=== PATIENT | male | born 1935 | race Caucasian/White ===

== ENCOUNTER 2018-02-25 09:00 | Emergency (ER) | payer OTHER ==
[~2018-02-25] VITALS: Ht 172.7 cm; Wt 117.9 kg
[~2018-02-25 09:00] MED LIST: ALFUZOSIN HCL10 MG PO; ALLEGRA ALLERG180 MG PO; ALLEGRA180 MG PO; ASPIRIN EC81 M1 PO; ASPIRIN325 PO; BISACODYL SUPP10 MG RECTAL; BYSTOLIC 5 MG5 M1 PO; CIPRO500 MG PO; CLONAZEPAM2 MG PO; CO Q-10100 MG PO; COLACE100 MG PO; COUMADIN 2.5MG2.5 M1 PO; COUMADIN 5 MG TA5 M1 PO; COZAAR100 MG PO; CRESTOR20 MG PO; DIAZEPAM 2MG TAB2 MG PO; DIGOXIN250 MCG PO; FISH OIL 1,2001 EAC3 PO; FLEXERIL PO; FLOMAX0.4 MG PO; FLOXIN OTI0.3 %/5 M1 OPHTHALMIC; HYDROCHLOROTH12.5 MG PO; LATANOPROST 0.2.5 ML OP; LEVAQUIN 500 M500 M7 PO; LIPITOR10 MG PO; LOPRESSOR100 M1 PO; LOPRESSOR50 PO; LORATIDINE 10 M10 M1 PO; LOW DOSE ASPIRI81 M1 PO; MACROBID 100 M100 M1 PO; METOPROLOL SUCC25 M1 PO; NORCO 5-325 TA1 EACH PO; NORVASC10 MG PO; OMEPRAZOLE20 M2 PO; OXYBUTYNIN 5 MG5 M2 PO; PANTOPRAZOLE SO40 M1 PO; PRED FORTE 1% EY5 M1 OPHTHALMIC; PRINIVIL20 MG PO; PROMETHAZINE-C120 ML PO; SENNA LAXATIVE1 EACH PO; TOLTERODINE TART4 MG PO; TOPROL XL50 MG PO; TRILIPIX135 MG PO; UROXATRAL10 MG PO; VERAPAMIL HCL360 MG PO; VITAMIN D31000 UNI2 PO; XARELTO20 MG PO
[2018-02-25 09:30] LABS: URINE BILIRUBIN NEGATIVE (Negative); URINE BLOOD NEGATIVE (Negative); URINE CLARITY CLEAR; URINE COLOR YELLOW; URINE GLUCOSE-RANDOM* NEGATIVE (Negative); URINE KETONES NEGATIVE (Negative); URINE PROTEIN (DIPSTICK) NEGATIVE (Negative)
[2018-02-25 09:31] LABS: URINE LEUKOCYTES-REFLEX NEGATIVE (Negative); URINE NITRITE-REFLEX NEGATIVE (Negative); URINE UROBILINOGEN 0.2 E.U./dl (0.2-1.0)
[2018-02-25 10:03] LABS: ABSOLUTE NEUTROPHILS 6.8 thou/uL (1.4-8.2); BASOPHILS 0.9 % (0.0-2.0); EOSINOPHILS 2.2 % (0.0-3.0); HEMATOCRIT 47.6 % (42.0-52.0); LYMPHOCYTES 19.6 % (24.0-44.0); MCH 31.1 pg (26.0-34.0); MCHC 33.7 g/dL (28.0-37.0); MCV 92.4 fL (80.0-100.0); MONOCYTES 6.8 % (1.0-8.0); PLATELET COUNT 182 thou/uL (150-400); POLYS 70.5 % (36.0-66.0); RBC 5.15 mil/uL (4.50-6.00); RDW 14.6 % (10.5-14.5); WBC 9.7 thou/uL (4.0-11.0)
[2018-02-25 10:16] LABS: CALCIUM 9.8 mg/dL (8.5-10.1); POTASSIUM 4.9 mmol/L (3.5-5.1)
[2018-02-25 10:21] LABS: ALBUMIN 3.5 g/dL (3.4-5.0); TOTAL BILIRUBIN 0.9 mg/dL (<0.1-1.0); TOTAL PROTEIN 7.1 g/dL (6.4-8.2)
[2018-02-25] MEDS ORDERED: NORCO 5-325 TA1 EACH PO (12:19)
[2018-02-25 12:51] VITALS: BP 150/69
== END 2018-02-25 12:56 | disposition home or self-care (01) ==
LOC: ER 09:00
PROVIDERS: Emergency Medicine
DX: M54.6 Pain in thoracic spine (principal); F17.210 Nicotine dependence, cigarettes, uncomplicated; K21.9 Gastro-esophageal reflux disease without esophagitis; I10 Essential (primary) hypertension; E78.5 Hyperlipidemia, unspecified; I48.91 Unspecified atrial fibrillation; G47.30 Sleep apnea, unspecified; M19.90 Unspecified osteoarthritis, unspecified site; G89.29 Other chronic pain; M54.9 Dorsalgia, unspecified; G20 Parkinson's disease; Z86.73 Personal history of transient ischemic attack (TIA), and cerebral infarction without residual deficits; Z88.2 Allergy status to sulfonamides; Z95.0 Presence of cardiac pacemaker

== ENCOUNTER 2018-05-04 09:21 | Inpatient (IN) | payer OTHER ==
[~2018-05-04] VITALS: Ht 172.7 cm; Wt 117.9 kg
--- NOTE | ~2018-05-04 | HC ---
[facility] [place] [address] CONSULTATION Name: SARITHA MACKENZIE Room #: 431- ADM IN M.R.#: [id number] Admission: 05/04/18 ������������������ Attend Phys: Lul Jean MD Discharge: ������������������ Date of : 36 Report #: [id number] THIS REPORT FOR: //name// CC: Lul Jean DATE OF SERVICE: 05/05/2018 HISTORY OF PRESENT ILLNESS: The patient is an 83-year-old white male who is known to me from a prior right pontine infarct back in 2016. He was noted to have left hemiparesis, was fitted with a left AFO, has residual left upper and left lower extremity weakness. He was ambulatory at that point, contact guard with the left AFO with a front-wheeled walker and had walker splint. Since that time, he has moved into an independent living apartment with intermittent assistance. He has used his right lower extremity as his main weightbearing lower extremity along with his left-sided weakness to transfer and utilize a walker short distances. Unfortunately, he has had the onset of intractable right leg pain, which severely affects his function. He is unable to undergo an MRI secondary to a prior permanent pacemaker. CT scan showed some degenerative arthritis with lumbar spinal stenosis and the plan is for him to undergo a myelogram. He is currently on IV Solu-Medrol. He is being monitored for some hematuria since the straight catheterization as well. We are seeing him in rehabilitation medicine consultation. PAST MEDICAL HISTORY: Prior right pontine CVA in 2016. He has a history of GERD, hypertension, hyperlipidemia, hiatal hernia, sinusitis, atrial fibrillation, sleep apnea. on CPAP; Parkinson's disease, BPH, chronic back pain, multiple TIAs, frequent falls. He has the above noted CVA. MEDICATIONS: Please see the full medication listing. This includes vitamins, herbals, and supplements per report. ALLERGIES: SULFA. HABITS: Cigars 1 a week. Some alcohol usage. No history of recreational drug abuse. SOCIAL HISTORY: His a couple of years ago and he moved into the independent living apartment. He does have additional paid assistance however a.m. and p.m. for approximately 30 minutes 4 times a day. They help with dressing activities and basic meals. He has a bed day on his toilet to help clean him up so that he does not need assistance after going to the bathroom. REVIEW OF SYSTEMS: He did not offer any current complaints of chest pain, shortness of breath, abdominal discomfort. Notes that he has to be careful with his swallowing and do it slowly, but he is not on any specific thickened [address] [address] CONSULTATION Name: IVAN MACKENZIENCER Room #: [address] [place] [address] IN M.R.#: [id number] Admission: 05/04/18 ������������������ Attend Phys: Lul Jean MD Discharge: ������������������ Date of : 36 Report #: [id number] liquids. No headache. No fever or chills. He did have some of that hematuria, which was noted since the straight catheterization. He has the residual left-sided weakness. He complains of a right lower extremity pain with weakness, especially with standing and mobility. It does not bother him as much rest. PHYSICAL EXAMINATION: GENERAL: An 83-year-old left-handed white male in no obvious distress. He is alert, pleasant, oriented. VITAL SIGNS: Last recorded temperature 97.4, pulse 65, respirations 19, blood pressure is 147/70. He is alert, pleasant. HEENT: Appeared to be benign. NEUROLOGIC: Cranial nerves are grossly intact. Facies appeared symmetric. EXTREMITIES: He has functional range of motion ____ the right upper extremity with strength grade 4 to 4-/5. Left upper extremity; however, has hemiparesis with strength only a grade 3 to 3+. He has a present, but weak favor maker. Right lower extremity strength is actually more of a grade 4-/5. He notes that it does not bother him at rest, but it specifically hurts him with increased activity. Left lower extremity strength is probably a grade 3+ to 4-/5. DTRs are trace to 1. Reasonable sensation to simultaneous stimulation. ASSESSMENT: An 83-year-old white male with the following problems: 1. Intractable right lower extremity pain. Undergo a myelogram, as he is not a candidate for an MRI scan. 2. 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 3. Hematuria since straight catheterization. This is being monitored. 4. Multilevel lumbar spinal stenosis, most significant at L4-L5. 5. Permanent pacemaker. 6. History of sleep apnea, on CPAP. 7. Prior cardioversion. 8. Parkinson's disease by history. 9. Benign prostatic hypertrophy. 10. History of chronic back pain. PLAN: As noted above. We will need to see what the myelogram shows. He is to undergo therapy evaluations. We will be glad to follow along with you regarding his rehab therapy needs. ��������������������������������������������� ���������������������������������������� By: ��������������������������������������������� [id number] Ivan Morales MD /nt
[2018-05-04 09:22] VITALS: BP 117/53
[2018-05-04 10:07] LABS: ABSOLUTE NEUTROPHILS 6.1 thou/uL (1.4-8.2); BASOPHILS 0.9 % (0.0-2.0); EOSINOPHILS 2.2 % (0.0-3.0); HEMATOCRIT 42.9 % (42.0-52.0); HEMOGLOBIN 14.8 gm/dL (14.0-18.0); LYMPHOCYTES 21.6 % (24.0-44.0); MCH 30.9 pg (26.0-34.0); MCHC 34.4 g/dL (28.0-37.0); MCV 89.8 fL (80.0-100.0); MONOCYTES 7.3 % (1.0-8.0); PLATELET COUNT 218 thou/uL (150-400); RBC 4.78 mil/uL (4.50-6.00); RDW 15.2 % (10.5-14.5); WBC 8.9 thou/uL (4.0-11.0)
[2018-05-04 10:55] LABS: CALCIUM 9.5 mg/dL (8.5-10.1); CREATININE 1.3 mg/dL (0.7-1.3); POTASSIUM 4.6 mmol/L (3.5-5.1)
[2018-05-04] MEDS ORDERED: PRED FORTE5 ML OPHTHALMIC ×2 (11:35→13:50)
[2018-05-04] MEDS ORDERED: ACYCLOVIR 200200 MG PO (11:36)
[2018-05-04] MEDS ORDERED: ACYCLOVIR 400400 MG PO (11:36)
[2018-05-04] MEDS ORDERED: METFORMIN HCL500 MG PO (11:37)
[2018-05-04 12:25] LABS: URINE BILIRUBIN NEGATIVE (Negative); URINE BLOOD NEGATIVE (Negative); URINE CLARITY CLEAR; URINE COLOR YELLOW; URINE GLUCOSE-RANDOM* NEGATIVE (Negative); URINE KETONES NEGATIVE (Negative); URINE LEUKOCYTES NEGATIVE (Negative); URINE NITRITE NEGATIVE (Negative); URINE PROTEIN (DIPSTICK) NEGATIVE (Negative)
[2018-05-04 12:59] VITALS: BP 124/54
[2018-05-04 13:35] VITALS: BP 126/57; BP 140/59
[2018-05-04] MEDS ORDERED: ASPIR 8181 MG PO (13:37)
[2018-05-04] MEDS ORDERED: GLUCOPHAGE XR500 MG PO (13:43)
[2018-05-04] MEDS ORDERED: PROTONIX40 M1 PO (13:48)
[2018-05-04] MEDS ORDERED: DIGOXIN250 MCG PO (13:52)
[2018-05-04 14:21] VITALS: BP 127/63
[2018-05-04] MEDS ORDERED: ZOCOR20 MG PO (15:19)
--- NOTE | 2018-05-04 16:55 | NUR ---
Pt arrived to unit per cart from emergency room at 1400 accompanied by daughter.Admission hx,assessment and care plan completed.Lab and xray results reviewed with pt and dtr.Pt in bed resting without c/o.Will continue to monitor.
[2018-05-04 19:39] VITALS: BP 129/63
--- NOTE | 2018-05-05 03:41 | NUR ---
ASSUMED PT CARE 1899. PT ALERT AND ORIENTED. VSS. REASASESSMENT COMPLETE. IV DRESSING C/D/I, NO SIGNS OF INFILTRATION. PT REPORTS PAIN IN R HIP. PT STTES IT IS INTENSIFYING AND STARTING TO SPREAD UP AND ACROSS LOWER BACK AND DOWN HIS LEG- DR. MCCULLOUGH NOTIFIED- RECEIVED ORDERS. PT HAD BLOODY URINE, DR. MCCULLOUGH ALSO NOTOFIED, WILL CONTINUE TO MONITOR. PT CALL LIGHT AND PERSONAL BELONINGS WITHIN REACH. [facility] ONTINUE POC UNTIL EOS.
[2018-05-05 04:30] VITALS: BP 145/73
[2018-05-05 08:36] VITALS: BP 147/70
--- NOTE | 2018-05-05 11:21 | NUR ---
ASSUMED CARE OF PT AT 0700. ASSESSMENT COMPLETED. A&O,X4. C/O BACK PAIN RADIATING TO LEGS AND RIGHT HIP, PAIN MEDS GIVEN ORDERED. PT REPORTS /10 LYING IN BED, 9/10 WITH MOVEMENT. PLAN FOR MYELOGRAM TOMORROW. HX CVA AND LEFT SIDED WEAKNESS. HX SLEEP APNEA AND CPAP USE AT NIGHT. ROOM AIR. NO SOA OR CHEST PAIN. PACEMAKER IN PLACE. BLOOD TINGED URINE NOTED DUE TO TRAUMA FROM STRAIGHT CATH IN ED. PHYSICIAN AWARE. WILL CONTINUE TO MONITOR.
--- NOTE | 2018-05-05 13:04 | NUR ---
INITIAL ASSESSMENT: Pt evaluated for d/c planning needs. Reviewed chart and spoke with nurse and pt's daughter Marina. . Pt lives in independent apartment at [facility]. Pt has walker at home. Pt was on [facility] 3 years ago after stroke. Pt is being evaluated by [facility]. Will remain available to assist as needed.
[2018-05-05 16:35] VITALS: BP 149/70
--- NOTE | 2018-05-05 18:40 | NUR ---
NO CHANGE IN PT STATUS. PT IN STABLE CONDITION. BACK PAIN TOLERABLE WITH PAIN MEDS, ABLE TO WORK WITH P.T. TODAY.
[2018-05-05 19:32] VITALS: BP 154/66
--- NOTE | 2018-05-06 04:50 | NUR ---
Pt a/o x 4. RA. VSS. CPAP at night. C/o occasional right hip/right back pain, pain med given per order. NPO after midnight. Pt resting in bed with eyes closedo with no apparent distress noted. Fall precautions maintained. Pt instructed to call for assistance. Call light within reach. Will continue to monitor.
[2018-05-06 04:52] VITALS: BP 152/80
[2018-05-06 10:45] LABS: INR 1.2; PROTIME 12.8 Seconds (9.3-11.4)
--- NOTE | 2018-05-06 11:09 | NUR ---
PT A&OX4, IV INTACT IN R HAND. AMNULATES WITH ASSIST X1, VOIDS PER URINAL. URINE IS TEA COLOR. LUMBAR MYLEOGRAM ORDERED FOR TODAY, PT HAS BEEN NPO SINCE [place]. COAGS/PLATLET ORDERED, CONSENT HAS BEEN SIGNED. WILL CONT POC.
[2018-05-06 20:43] VITALS: BP 145/56
--- NOTE | 2018-05-07 03:53 | NUR ---
PT DENIED PAIN SO FAR.UP WITH ASSIST X2 TO BSC,HAD XL FORMED BM.URINAL AT BEDSIDE.HX OF SLEEP APNEA,CPAP IN PLACE.PT ABLE TO MAKE HIS NEEDS KNOWN.CALL LIGHT WITHIN REACH.
[2018-05-07 05:45] VITALS: BP 129/57
[2018-05-07 07:44] VITALS: BP 147/69
--- NOTE | 2018-05-07 13:54 | NUR ---
FAXED REFERRAL TO [facility] LEFT MSG WITH LILIAN IN ADM. TO NOT SUBMIT FOR AUTH. TIL WE KNOW IF PT. IS ACCEPTED FOR ACUTE REHAB. DCP TO FOLLOW.
--- NOTE | 2018-05-07 17:00 | NUR ---
AUTHORIZATION FOR ACUTE REHAB STAY HAS BEEN REQUESTED FROM PATIENT'S INSURANCE, [facility]. AWAITING RESPONSE. WILL ADMIT PATIENT WHEN/IF AUTH IS RECEIVED AND PATIENT IS MEDICALLY READY FOR ADMISSION FOR ACUTE REHAB.
[2018-05-07 17:23] VITALS: BP 150/63
--- NOTE | 2018-05-07 19:24 | NUR ---
ASSUMED CARE OF PT AT 0700. ASSESSMENT COMPLETED. A&O,X4, FORGETFUL AT TIMES. FAMILY AT BEDSIDE THIS EVENING. VSS. DENIES PAIN, N/V/D, SOA, CHEST PAIN. D/C PENDING REHAB PLACEMENT.
[2018-05-07 23:00] VITALS: BP 144/59
--- NOTE | 2018-05-08 04:37 | NUR ---
ASSUMED PT CARE 1899. PT ALERT AND ORIENTED. REASSESSMENT COMPLETE. VSS. IV DRESSING C/D/I, NO SIGNS OF INFITLRATION. PT DENIES PAIN, N/V AT THIS TIME. CPAP APPLIED AT HS. PT CALL LIGHT AND PERSONAL BELONINGS WITHIN REACH. WILL CONTINUE POC UNTIL EOS.
[2018-05-08 05:25] VITALS: BP 143/63
[2018-05-08 07:45] VITALS: BP 144/61
--- NOTE | 2018-05-08 08:38 | NUR ---
ASSUMED CARE OF PT AT 0700. ASSESSMENT COMPLETED. A&0,X4 FORGETFUL AT TIMES. AM MEDS GIVEN ORDERED. HX HTN, PACEMAKER. ROOM AIR. C/O LEG AND BACK PAIN/SPASMS, PAIN MEDS GIVEN ORDERED. WAITING FOR INSURANCE AUTHORIZATION. PT IN STABLE CONDITION. WILL CONTINUE TO MONITOR.
[2018-05-08 16:57] VITALS: BP 149/60
[2018-05-09 03:00] VITALS: BP 148/62
--- NOTE | 2018-05-09 08:19 | NUR ---
ASSESMENT COMPLETED. VSS. A/O. CHRONIC BACK PAIN MANAGED BY MEDS. PT VERBALIZES NMO DISCOMFORT AT THIS TIME. NO NOTED SOA. NO NV. USES CPAP AT NIGHT. MEDS GIVEN ORDERED TOLERATED WELL. WILL CONT. TO MONITOR,.
--- NOTE | 2018-05-09 08:23 | NUR ---
PT LYING IN BED. DENIES PAIN. VOIDING PER URINAL. RESTING COMFORTABLY. NO NEEDS VOICED. CALL LIGHT WITHIN REACH. WILL CONTINUE TO PROVIDE FREQUENT OBSERVATION.
[2018-05-09 08:38] VITALS: BP 133/71
[2018-05-09 16:41] VITALS: BP 129/73
[2018-05-09 20:05] VITALS: BP 129/57
[2018-05-10 05:07] VITALS: BP 145/63
--- NOTE | 2018-05-10 07:34 | NUR ---
SLEPT WELL WITH CPAP IN USE DURING THE NIGHT. DENIED PAIN. ASSISTED PATIENT WITH REPOSITIONING SELF.
[2018-05-10 07:43] VITALS: BP 141/73
--- NOTE | 2018-05-10 08:42 | NUR ---
CALL RECEIVED THIS AM FROM [facility]. PATIENT DENIED ACUTE REHAB STAY. [facility] STATES PATIENT'S CURRENT NEEDS CAN BE MANAGED IN A LOWER LEVEL OF CARE - SNF. IF PHYSICAIN DECIDES TO COMPLETE A PEER TO PEER, IT MUST BE DONE BY THE 05/11/18 AT 3:00PM. PHONE NUMBER TO CALL IS . FOOD MIXER AND SPENT GRAIN DRYER INFORMED OF DENIAL. THANK YOU FOR THIS REFERRAL.
--- NOTE | 2018-05-10 09:47 | NUR ---
FAXED MOST RECENT PT/OT NOTES TO [facility] SPOKE WITH GRACIA IN ADM. SHE RECEIVED AND WILL SUBMIT FOR AUTH. DC SPIKE MAKER TO FOLLOW.
--- NOTE | 2018-05-10 10:32 | NUR ---
Nutrition: assess d/t LOS. Pt admitted for back/hip pain, spinal stenosis. Pt states his appetite has been good. He is trying to be careful about what he eats as he would like to lose weight. Possible transfer to rehab unit soon. Consider low nutrition risk.
--- NOTE | 2018-05-10 10:33 | NUR ---
FAXED UPDATE TO [facility] SPOKE WITH GRACIA IN ADM. SHE RECEIVED UPDATE AND WILL SUBMIT FOR AUTH. DCP TO FOLLOW.
--- NOTE | 2018-05-10 11:57 | NUR ---
FAXED REFERRAL TO [facility] [place]. LEFT MSG WITH ADM. OSCAR THAT IF ACCEPTED TO SUBMIT FOR AUTH. THIS FACILITY IS PT'S FAMILY FIRST CHOICE. DCP TO FOLLOW.
[2018-05-10 16:26] VITALS: BP 129/60
--- NOTE | 2018-05-10 20:24 | NUR ---
ASSESSMENT COMPLETED.VSS.PT IN AND OUT OF ROOM TODAY FOR AMBULATION WITH THERAPIST.GOOD ENDURANCE NOTED.PT TOLERATED MEDS AND DIET.MARKETING ANALYTICS ANALYST WORKING ON INSURANCE CLEARANCE BEFORE PT TRANSFER BUT IT WILL PROBABLY BE IN AM. FAMILY HERE LATER THIS EVENING,UPDATES GIVEN.WILL CONTINUE TO MONITOR.
[2018-05-10 22:42] VITALS: BP 139/63
[2018-05-11 05:15] VITALS: BP 162/74
--- NOTE | 2018-05-11 06:03 | NUR ---
Assumed care of pt at 1900. Pt a&o x4. No c/o pain. Wear C-pap at night. Possible d/c in am. Call light within reach. Will continue to monitor and assist with needs as they arise.
[2018-05-11] MEDS ORDERED: PREDNISONE 20 M20 M1 PO (07:41)
[2018-05-11 08:42] VITALS: BP 142/78
[2018-05-11 09:07] VITALS: BP 142/78
--- NOTE | 2018-05-11 13:14 | NUR ---
PT. DISCHARGING TODAY TO [facility]. FAXED DC ORDERS/SUMMARY TO FACILITY SPOKE WITH PABLO IN ADM. SHE RECEIVED DC ORDERS. FAMILY WILL TRANSPORT PT. TO FACILITY AT 1400 TODAY AND FACILITY NOTIFIED OF TIME OF TRANSPORT. UNIT NOTIFIED AND CHART COPY PER US. RN TO CALL REPORT TO [phone].
--- NOTE | 2018-05-11 14:32 | NUR ---
Assumed pt care at 7am.Pt in bed for breakfast.Good appetite. Assessment completed.vss.Dr Jean here,dc order noted.manager culture arranged with facility when and how pt will be transfer today.Family notified.Dc summary compiled and report off to Alexandra frazier at [facility].Saline lock dc'd.At 1430.pt picked up by dtr in in private car.
== END 2018-05-11 16:01 | DRG 552 ==
LOC: ER 09:21 → 4E 10:57 → EROBS 10:57 → 4E 13:52 → ENTRNSPT 05-11 14:18 → EDTRNSPTSTS 05-11 14:21 → 4E 05-11 16:01
PROVIDERS: Student in an Organized Health Care Education/Training Program; ADMIT Family Medicine
PROC: B01B1ZZ Fluoroscopy of Spinal Cord using Low Osmolar Contrast (ICD-10-PCS; principal; 2018-05-06)
DX: M48.061 Spinal stenosis, lumbar region without neurogenic claudication (principal); I69.354 Hemiplegia and hemiparesis following cerebral infarction affecting left non-dominant side; M54.16 Radiculopathy, lumbar region; R31.9 Hematuria, unspecified; K21.9 Gastro-esophageal reflux disease without esophagitis; I10 Essential (primary) hypertension; E78.5 Hyperlipidemia, unspecified; K57.90 Diverticulosis of intestine, part unspecified, without perforation or abscess without bleeding; I48.91 Unspecified atrial fibrillation; G20 Parkinson's disease; N40.0 Benign prostatic hyperplasia without lower urinary tract symptoms; G89.29 Other chronic pain; M54.9 Dorsalgia, unspecified; G47.33 Obstructive sleep apnea (adult) (pediatric); E11.9 Type 2 diabetes mellitus without complications; M19.90 Unspecified osteoarthritis, unspecified site; F17.290 Nicotine dependence, other tobacco product, uncomplicated; Z95.0 Presence of cardiac pacemaker; Z88.2 Allergy status to sulfonamides; Z79.82 Long term (current) use of aspirin; Z79.899 Other long term (current) drug therapy
CPT/HCPCS: 10084

== ENCOUNTER 2018-05-24 11:47 | Inpatient (IN) | payer OTHER ==
[~2018-05-24] VITALS: Ht 172.7 cm; Wt 108.1 kg
[~2018-05-24 11:47] MED LIST changes: +ACYCLOVIR 200200 MG PO; +ACYCLOVIR 400400 MG PO; +ASPIR 8181 MG PO; +GLUCOPHAGE XR500 MG PO; +METFORMIN HCL500 MG PO; +PRED FORTE5 ML OPHTHALMIC; +PREDNISONE 20 M20 M1 PO; +PROTONIX40 M1 PO; +ZOCOR20 MG PO
[2018-05-24 11:48] VITALS: BP 124/70
[2018-05-24] MEDS ORDERED: BISACODYL SUPP10 MG RECTAL (11:56)
[2018-05-24] MEDS ORDERED: CIPRO500 MG PO (11:56)
[2018-05-24] MEDS ORDERED: FLEET ENEMA EX230 ML RECTAL (11:57)
[2018-05-24] MEDS ORDERED: ROBITUSSIN100 MG/53 PO (11:57)
[2018-05-24] MEDS ORDERED: MILK OF MA2400 MG/11 PO (11:58)
[2018-05-24 12:47] LABS: ABSOLUTE NEUTROPHILS 12.2 thou/uL (1.4-8.2); BASOPHILS 0.3 % (0.0-2.0); EOSINOPHILS 0.1 % (0.0-3.0); HEMATOCRIT 43.7 % (42.0-52.0); HEMOGLOBIN 14.6 gm/dL (14.0-18.0); LYMPHOCYTES 5.3 % (24.0-44.0); MCH 30.8 pg (26.0-34.0); MCHC 33.5 g/dL (28.0-37.0); MCV 91.9 fL (80.0-100.0); MONOCYTES 5.8 % (1.0-8.0); PLATELET COUNT 169 thou/uL (150-400); POLYS 88.5 % (36.0-66.0); RBC 4.76 mil/uL (4.50-6.00); WBC 13.8 thou/uL (4.0-11.0)
[2018-05-24 12:59] LABS: ANION GAP 10 mmol/L (7-16); BUN 46 mg/dL (7-18); CALCIUM 9.9 mg/dL (8.5-10.1); CHLORIDE 99 mmol/L (98-107); CO2 25 mmol/L (21-32); CREATININE 1.9 mg/dL (0.7-1.3); GLUCOSE 143 mg/dL (74-106); POTASSIUM 4.9 mmol/L (3.5-5.1); SODIUM 134 mmol/L (136-145)
[2018-05-24 13:08] LABS: ALBUMIN 2.5 g/dL (3.4-5.0); SGOT 20 U/L (15-37); SGPT 45 U/L (30-65); TOTAL PROTEIN 6.3 g/dL (6.4-8.2); TROPONIN-I <0.06 ng/mL (<0.06)
[2018-05-24 13:43] LABS: URINE BILIRUBIN NEGATIVE (Negative); URINE BLOOD NEGATIVE (Negative); URINE CLARITY CLEAR; URINE COLOR YELLOW; URINE GLUCOSE-RANDOM* NEGATIVE (Negative); URINE KETONES NEGATIVE (Negative); URINE LEUKOCYTES-REFLEX NEGATIVE (Negative); URINE NITRITE-REFLEX NEGATIVE (Negative); URINE PROTEIN (DIPSTICK) NEGATIVE (Negative); URINE SPECIFIC GRAVITY 1.025 (1.005-1.035)
[2018-05-24] MEDS ORDERED: COLACE 100 MG100 MG PO (14:36)
[2018-05-24] MEDS ORDERED: MILK OF MA400 MG/5 M PO (14:38)
[2018-05-24] MEDS ORDERED: MIRALAX17 GM PO (14:39)
[2018-05-24] MEDS ORDERED: MAG-AL PLUS XS30 ML PO (14:40)
[2018-05-24] MEDS ORDERED: KRILL OIL500 MG PO (14:41)
[2018-05-24] MEDS ORDERED: OMEPRAZOLE20 M2 PO (14:42)
[2018-05-24] MEDS ORDERED: PROBIOTIC1 EAC1 PO (14:43)
[2018-05-24] MEDS ORDERED: SENNA-S TABLET1 EACH PO (14:45)
[2018-05-24] MEDS ORDERED: APAP650 PO (14:45)
[2018-05-24] MEDS ORDERED: ONDANSETRON HCL4 M2 PO (14:46)
--- NOTE | 2018-05-24 14:47 | EKG ---
[address] [place] [address] ELECTROCARDIOGRAM REPORT Name: GURDEEPSARTIHA Room #: 170-2 ADM IN M.R.#: [id number] ������������������ Admission: 05/24/18 ������������������ Attend Phys: Lul Jean MD Discharge: ������������������ Date of : 36 Report #: [id number] ����������������������������������������������������������������� [id number] THIS REPORT FOR: //name// [facility] ED Test Date: 2018-05-24 Test Time: 12:00:14 Pat Name: SARITHA MACKENZIE Department: Room: 170 Gender: M Audio Technician: ANNE : 1935 Requested By: Ember Pryor Order Number: [id number] MD: Galen Mancia Measurements Intervals [place] Rate: 66 P: 0 GA: 66 QRS: 11 QRSD: 102 T: 235 QT: 343 QTc: 360 Interpretive Statements Ventricular-paced complexes No further analysis attempted due to paced rhythm Compared to ECG 04/11/2015 10:28:57 Atrial fibrillation no longer present Electronically Signed On 05-24-2018 14:47:17 CDT by Galen Mancia [email or web address] ��������������������������������������������� <ELECTRONICALLY SIGNED> ���������������������������������������� By: Galen Mancia MD ��������������������������������������������� 05/24/18 1447 1200 1200 Galen Mancia MD /EPI
[2018-05-24] MEDS ORDERED: PREDNISONE 10 M10 MG PO (15:00)
[2018-05-24 17:20] VITALS: BP 146/68
[2018-05-24 17:43] VITALS: BP 142/41
[2018-05-24 19:07] VITALS: BP 154/66
[2018-05-25 04:04] LABS: CALCIUM 9.2 mg/dL (8.5-10.1); CREATININE 1.6 mg/dL (0.7-1.3); POTASSIUM 4.5 mmol/L (3.5-5.1)
[2018-05-25 04:09] VITALS: BP 177/76
[2018-05-25 07:35] VITALS: BP 175/73
--- NOTE | 2018-05-25 07:59 | NUR ---
Assumed care at 1845 from Admitting Nurse. Pt daughter came in to sign the forms. She also brought his Bipap machine. He was complain of back pain that has been going on for 3 week informed attending MD who prescribed some pain medication. His AOX4. Vpaced on TELE. Has a pacemaker. On RA. Been using a urinal. IV L AC with NS @125. No skin issue. No identified needs at the moment. Will continue to monitor.
[2018-05-25 14:30] VITALS: BP 153/62
[2018-05-25 19:37] VITALS: BP 163/71
[2018-05-26 04:35] VITALS: BP 165/68
--- NOTE | 2018-05-26 04:42 | NUR ---
ASSUMED CARE FROM PREVIOUS SHIFT PT C/O CHRONIC BACK PAIN DR MCCULLOUGH NOTIFED ORDER RECIEVED FOR PAIN MEDICATION, PT RESTED WELL AFTER MEDICATION TAKEN. DISCUSSED PLAN OF CARE AND AGREEABLE BLUEPRINT TRIMMER SHOWS NSR WITH V PACED BEATS. WILL CONTINUE WITH CURRENT PLAN OF CARE.
[2018-05-26 06:00] LABS: HEMATOCRIT 38.3 % (42.0-52.0); HEMOGLOBIN 13.1 gm/dL (14.0-18.0); MCH 31.1 pg (26.0-34.0); MCHC 34.3 g/dL (28.0-37.0); MCV 90.9 fL (80.0-100.0); RBC 4.22 mil/uL (4.50-6.00)
[2018-05-26 06:24] LABS: CALCIUM 8.4 mg/dL (8.5-10.1); CREATININE 1.4 mg/dL (0.7-1.3); POTASSIUM 4.2 mmol/L (3.5-5.1)
[2018-05-26 07:40] VITALS: BP 154/69
[2018-05-26] MEDS ORDERED: TAMIFLU30 MG PO (11:37)
--- NOTE | 2018-05-26 14:19 | NUR ---
DISCHARGE PLANNING. PATIENT IS MEDICALLY READY FOR DISCHARGE TODAY. POST ACUTE CARE RECOMMENDED AT DISCHARGE. PATIENT REQUEST REFERRAL FAXED TO [facility]. CALL PLACED TO FACILITY ADMISSIONS COODINATORS TO NOTIFY OF REFERRAL FAXED AND PATIENTS DISCHARGE NEEDS. BOTH TO REVIEW CLINICAL INFORMATION AND NOTIFY CM ONCE COMPLETE. UNIT CM/SW AWARE. FOLLOWING TO ASSIST.
--- NOTE | 2018-05-26 14:27 | NUR ---
PT ADMITTED RELATED TO INFLUENZA, WEAKNESS; ESTELA. CM REVIEWED CHART AND SPOKE WITH CARE TEAM. PT RESIDES AT [facility] IN AN INDEPENDENT LIVING APARTMENT. PT HAD BEEN SKILLED AT [facility]. CM CALLED PT'S DTR JAVI AND SHE INDICATED THAT PT WOULD PREFER TO GO TO ANOTHER SKILLED FACILITY [place]ON [place]. THEY ASKED THAT REFERRALS BE SENT TO [facility] AND [facility]. REFERRALS WERE SENT. PHYSICAIN INDICATED THAT PT IS MEDICALLY STABLE TO DC THIS DAY. AWAITING INSURANCE AUTH. CM TO FOLLOW INDICATED WITH DC PLANNING.
[2018-05-26 15:03] VITALS: BP 134/58
--- NOTE | 2018-05-26 15:07 | NUR ---
ASSUMED CARE 0700. A/OX4, VSS, DENIES PAIN, UP WITH MINIMAL ASSISTANCE. VPACED ON TELE. CONTINENT WITH URINAL NO BM AT THIS TIME. REMAINS ON ISOLATION FOR INFLUENZA. HOME MEDS RESTARTED TODAY. DISCHARGE ORDERS IN WAITING FOR AUTHORIZATION FOR REHAB. FALL PRECAUTIONS IN PLACE. CALL LIGHT IN REACH
[2018-05-26 20:28] VITALS: BP 162/56
[2018-05-27 04:36] VITALS: BP 152/67
--- NOTE | 2018-05-27 07:32 | NUR ---
progress pt a/o x4 , vss tele intact reading vpaced in 80's had one episode of tachycardia with a rate up to 158 for a few seconds. incontinent of urina at times and able to use urinal independently mostly. bed bath given and linen changed pt assisted when instructed. iv intact. plan to dc to rehab when auhorization obtained.
[2018-05-27 07:47] VITALS: BP 145/65
[2018-05-27 10:04] LABS: HEMATOCRIT 39.5 % (42.0-52.0); HEMOGLOBIN 13.2 gm/dL (14.0-18.0); MCH 30.3 pg (26.0-34.0); MCHC 33.4 g/dL (28.0-37.0); MCV 90.6 fL (80.0-100.0); RBC 4.36 mil/uL (4.50-6.00); RDW 14.7 % (10.5-14.5); WBC 11.1 thou/uL (4.0-11.0)
[2018-05-27 10:12] LABS: CALCIUM 9.2 mg/dL (8.5-10.1); CREATININE 1.4 mg/dL (0.7-1.3); MAGNESIUM 1.8 mg/dL (1.8-2.4); POTASSIUM 4.2 mmol/L (3.5-5.1)
--- NOTE | 2018-05-27 14:07 | NUR ---
ASSUMED CARE 0700. ALERTX4, DENIES PAIN, VSS. ABLE TO MAKE NEEDS KNOWN. ON ISOLATION FOR INFLUENZA. AWAITING DC TO REHAB ONCE INSURANCE AUTHORIZED. PT AND FAMILY AWARE OF DC PLANNING. FALL PRECAUTION AND CALL LIGHT IN PLACE.
--- NOTE | 2018-05-27 14:20 | NUR ---
REFERRALS WERE SENT TO [facility]. [facility] DOESN'T HAVE BEDS UNTIL THE 10. [facility] IS ABLE TO ACCEPT PT BUT WON'T TAKE HIM UNTIL TOMORROW THEY WANT PT TO HAVE 4 DAYS OF TAMIFLU. PT AND DTR ARE AWARE AND AGREEABLE. CM AND DC PROGRAM PROPOSALS COORDINATOR TO SET UP TRANSPORT TOMORROW. CM TO FOLLOW INDICATED WITH DC PLANNING.
[2018-05-27 16:03] VITALS: BP 138/59
[2018-05-27 20:19] VITALS: BP 134/55
--- NOTE | 2018-05-28 01:53 | NUR ---
PT GIVEN NORCO BEFORE BEDTIME PT WAS ABLE TO SLEEP MOST OF THE NIGHT PT HAD BI PAP ON DURING MOST OF THE SHIFT NO ISSUES OVERNIGHT.
[2018-05-28 03:18] VITALS: BP 149/64
[2018-05-28 06:09] LABS: HEMATOCRIT 38.2 % (42.0-52.0); HEMOGLOBIN 12.7 gm/dL (14.0-18.0); MCH 30.5 pg (26.0-34.0); MCHC 33.3 g/dL (28.0-37.0); MCV 91.7 fL (80.0-100.0); RBC 4.17 mil/uL (4.50-6.00); RDW 14.8 % (10.5-14.5); WBC 11.3 thou/uL (4.0-11.0)
[2018-05-28 06:43] LABS: CALCIUM 9.3 mg/dL (8.5-10.1); CREATININE 1.5 mg/dL (0.7-1.3); MAGNESIUM 1.9 mg/dL (1.8-2.4)
[2018-05-28 07:46] VITALS: BP 156/67
[2018-05-28 08:54] VITALS: BP 157/67
== END 2018-05-28 15:55 | DRG 682 ==
LOC: ER 11:47 → EROBS 14:12 → 4W 14:12
PROVIDERS: Internal Medicine; Physician Assistant; ADMIT Family Medicine
DX: N17.9 Acute kidney failure, unspecified (principal); J10.00 Influenza due to other identified influenza virus with unspecified type of pneumonia; E43 Unspecified severe protein-calorie malnutrition; I69.354 Hemiplegia and hemiparesis following cerebral infarction affecting left non-dominant side; K21.9 Gastro-esophageal reflux disease without esophagitis; I10 Essential (primary) hypertension; E78.5 Hyperlipidemia, unspecified; K57.90 Diverticulosis of intestine, part unspecified, without perforation or abscess without bleeding; I48.91 Unspecified atrial fibrillation; G20 Parkinson's disease; N40.0 Benign prostatic hyperplasia without lower urinary tract symptoms; M19.90 Unspecified osteoarthritis, unspecified site; G89.29 Other chronic pain; M54.9 Dorsalgia, unspecified; F17.210 Nicotine dependence, cigarettes, uncomplicated; M48.00 Spinal stenosis, site unspecified; Z95.0 Presence of cardiac pacemaker; Z88.2 Allergy status to sulfonamides
CPT/HCPCS: 10045

== ENCOUNTER 2018-07-20 14:38 | Inpatient (IN) | payer OTHER ==
[~2018-07-20] VITALS: Ht 172.7 cm; Wt 96.0 kg
--- NOTE | ~2018-07-20 | PFR/MVV ---
[facility] [place] [address] PULMONARY FUNCTION MVV/REPORT Name: SARITHA MACKENZIE Room #: 218-P [facility] IN M.R.#: [id number] ������������������ Admission: 07/20/18 ������������������ Attend Phys: Lul Jean MD Discharge: 07/23/18 ������������������ Date of : 36 Report #: [id number] THIS REPORT FOR: //name// COPIES FOR: AGE:������ 83 SEX/RACE:� M/C >> SPIROMETRY: (BTPS) Height: 66 in cm Weight: 210 lbs kg Exam Date: 07/23/18 PRE-RX POST-RX PRED BEST %PRED BEST %PRED %CHG FVC LITERS . 3.31 . 2.93 . 88 . 2.83 . 86 . -2 FEV1 LITERS . 2.31 . 2.38 . 103 . 2.39 . 104 . 1 FEV1/FVC % . 71 . 81 . 114 . 84 . 118 . 3 HIJ18-97% L/Sec . 1.52 . 2.44 . 160 . 2.56 . 168 . 5 PEF L/SEC . 6.13 . 5.34 . 87 . 5.00 . 82 . -6 FEF50/FIF50 UNITLESS . . 2.34 . . 2.41 . . 3 MVV L/Min . . . f 1/Min . . . >> LUNG VOLUMES: (BTPS) PRE-RX POST-RX PRED AVG %PRED AVG %PRED %CHG VC Liters . . . . . . TLC Liters . . . . . . RV Liters . . . . . . RV/TLC % . . . . . . FRC PL Liters . . . . . . FRC N2 Liters . . . . . . ERV Liters . . . . . . IC Liters . . . . . . >> DIFFUSION: DLCO ml/Min/mmHg . . . . . . DL Dangelo ml/Min/mmHg . . . . . . DLCO/VA ml/Min/mmHg . . . . . . VA Liters . . . . . . [facility] [address] [place] [address] PULMONARY FUNCTION MVV/REPORT Name: IVAN MACKENZIENCER Room #: 218- DIS IN M.R.#: [id number] ������������������ Admission: 07/20/18 ������������������ Attend Phys: Lul Jean MD Discharge: 07/23/18 ������������������ Date of : 36 Report #: [id number] COMMENTS: COMMENTS: >> RESISTANCE: PRE-RX PRED AVG %PRED Raw Total cmH20/L/Sec . . . Raw Insp cmH20/L/Sec . . . Raw Exp cmH20/L/Sec . . . Raw cmH20/L/Sec . . . Gaw L/Sec/cmH20 . . . sRaw cmH20 Sec . . . sGaw l/cmH20 Sec . . . Vtq Liters . . . # = OUTSIDE 95% [place]FIDENCE INTERVAL CALIBRATION: PRED: 3.00 ACTUAL: EXP 3.01 INSP 3.02 [facility]-OL10-06 [facility] N-1804-4 >> INTERPRETATION/IMPRESSION: CC: Lul Jean SPIROMETRY: FEV1 is 2.38 liters (103%), FVC is 2.93 liters (88%) and FEV1/FVC ratio is 81%. Postbronchodilator therapy with no significant response. IMPRESSION: Spirometry is suggestive of normal pulmonary function. ��������������������������������������������� ���������������������������������������� By: ��������������������������������������������� Boris Gaytan MD /nt
[~2018-07-20 14:38] MED LIST changes: +APAP650 PO; +COLACE 100 MG100 MG PO; +FLEET ENEMA EX230 ML RECTAL; +KRILL OIL500 MG PO; +MAG-AL PLUS XS30 ML PO; +MILK OF MA2400 MG/11 PO; +MILK OF MA400 MG/5 M PO; +MIRALAX17 GM PO; +ONDANSETRON HCL4 M2 PO; +PREDNISONE 10 M10 MG PO; +PROBIOTIC1 EAC1 PO; +ROBITUSSIN100 MG/53 PO; +SENNA-S TABLET1 EACH PO; +TAMIFLU30 MG PO
[2018-07-20 15:22] VITALS: BP 129/57
[2018-07-20 15:33] LABS: HEMATOCRIT 41.2 % (42.0-52.0); HEMOGLOBIN 13.6 gm/dL (14.0-18.0); MCH 30.5 pg (26.0-34.0); MCHC 32.9 g/dL (28.0-37.0); MCV 92.5 fL (80.0-100.0); RBC 4.45 mil/uL (4.50-6.00); RDW 16.4 % (10.5-14.5); WBC 13.3 thou/uL (4.0-11.0)
[2018-07-20 15:46] LABS: ALBUMIN 2.6 g/dL (3.4-5.0); CALCIUM 10.3 mg/dL (8.5-10.1); CREATININE 1.3 mg/dL (0.7-1.3); POTASSIUM 4.5 mmol/L (3.5-5.1); TOTAL BILIRUBIN 1.2 mg/dL (<0.1-1.0); TOTAL PROTEIN 7.2 g/dL (6.4-8.2)
[2018-07-20 17:03] LABS: BE(vivo) 0.7 mmol/L (-2 to +3); HCO3 23.5 mmol/L (22.0-26.0); PCO2 32.3 mmHg (35.0-45.0); PO2 59.9 mmHg (80.0-100.0); pH 7.479 (7.360-7.450); sO2 92.9 % (92.0-98.0)
[2018-07-20 19:27] VITALS: BP 138/68
--- NOTE | 2018-07-20 20:30 | NUR ---
PATIENT ALERT AND ORIENTED WITH DAUGHTERS AT BEDSIDE. ADMISSION ASSESSMENT AND DOCUMENTATION COMPLETE. PATIENT NEEDS CPAP AT NIGHT HE HAS ONE AT HIS APARTMENT [place]. PATIENT DIRECT ADMIT FROM [facility] OFFICE. PATIENT WILL BE EVALUATED BY CARDIOLOGY AND RESPIRATORY.
--- NOTE | 2018-07-21 02:34 | NUR ---
SHIFT NOTE PT ALERT AND ORRIENTED. VSS. ASSESSMENTS CHARTED. PT TURNS SELF IN BED. RT BROUGHT CPAP TO BEDSIDE AND PT WORE TO SLEEP. PT HAD NO COMPLAINTS OF PAIN, SOA, CHEST PAIN, OR NV. PT RESTING WELL IN BED. WILL CONTINUE TO MONITOR TILL THE END OF THE SHIFT.
[2018-07-21 05:15] LABS: CALCIUM 9.8 mg/dL (8.5-10.1); CREATININE 1.1 mg/dL (0.7-1.3)
[2018-07-21 05:31] LABS: DIGOXIN 1.7 ng/mL (0.9-2.0)
[2018-07-21 05:36] VITALS: BP 130/70
--- NOTE | 2018-07-21 08:18 | EKG ---
[address] [address] ELECTROCARDIOGRAM REPORT Name: SARITHA MACKENZIE Room #: 218-P ADM IN M.R.#: [id number] ������������������ Admission: 07/20/18 ������������������ Attend Phys: Lul Jean MD Discharge: ������������������ Date of : 36 Report #: [id number] ����������������������������������������������������������������� [id number] THIS REPORT FOR: //name// [facility] Test Date: 2018-07-21 Test Time: 07:31:10 Pat Name: SARITHA MACKENZIE Department: Room: 218 P Gender: M Adjunct Professor Of English: VIANEY : 1935 Requested By: Ivan Camacho Order Number: [id number] MD: Galen Mancia Measurements Intervals [place] Rate: 67 P: [place]: QRS: -3 QRSD: 91 T: 233 QT: 363 QTc: 383 Interpretive Statements Ventricular paced rhythm, intermittent. No further rhythm analysis attempted due to paced rhythm Nonspecific repol abnormality, diffuse leads Compared to ECG 05/24/2018 12:00:14 Early repolarization now present Electronically Signed On 07-21-2018 8:17:53 CDT by Galen Mancia [email or web address] ��������������������������������������������� <ELECTRONICALLY SIGNED> ���������������������������������������� By: Galen Mancia MD ��������������������������������������������� 07/21/18 0817 0 0 Galen Mancia MD /EPI
[2018-07-21 11:58] VITALS: BP 130/62
--- NOTE | 2018-07-21 13:06 | 2DMMODE ---
[facility] [address] [place] [address] 2 D/M-MODE ECHOCARDIOGRAM Name: SARITHA MACKENZIE Room #: 218-P ADM IN M.R.#: [id number] ������������� Admission: 07/20/18 ������������� Attend Phys: Lul Jean, Discharge: ��� ������������� ��� Date of : 37 Date of Service: 07/21/18 1306 �� Report #: [id number] �������� ��������������������������������������������[id number] THIS REPORT FOR: //name// APPROVED REPORT Study performed: 07/21/2018 10:43:18 EXAM: Comprehensive 2D, Doppler, and color-flow Echocardiogram Patient Location: Echo lab Room #: 218 Status: routine BSA: 2.13 HR: 69 bpm BP: 130/70 mmHg Rhythm: Atrial Fibrillation Other Information Study Quality: Adequate Technically limited study due to body habitus, heavy breathing. Indications Atrial Fibrillation Dyspnea Question CHF. Hx: Afib, cardioversion, pacemaker, HTN. 2D Dimensions IVSd: 12.44 (7-11mm) LVOT Diam: 22.50 (18-24mm) LVDd: 45.33 mm PWd: 13.11 (7-11mm) Ascending Ao: 32.27 (22-36mm) LVDs: 32.13 (25-40mm) Aortic Root: 35.07 mm Volumes Left Atrial Volume (Systole) Single Plane 4CH: 90.09 mL Single Plane 2CH: 81.89 mL LA ESV Index: 44.00 mL/m2 Aortic Valve AoV Peak Ata.: 1.60 m/s AO Peak Gr.: 10.30 mmHg LVOT Max P.74 mmHg LVOT Max V: 1.09 m/s MITZI Vmax: 2.69 cm2 Mitral Valve [facility] [address] [place] [address] 2 D/M-MODE ECHOCARDIOGRAM Name: SARITHA MACKENZIE Room #: [facility] IN ..#: [id number] ������������� Admission: 07/20/18 ������������� Attend Phys: Lul Jean, Discharge: ��� ������������� ��� Date of : 37 Date of Service: 07/21/18 1306 �� Report #: [id number] �������� ��������������������������������������������[id number] MV Decel. Time: 165.28 ms MV E Max Ata.: 0.79 m/s Pulmonary Valve PV Peak Ata.: 1.21 m/s PV Peak Gr.: 5.89 mmHg Tricuspid Valve TR Peak Ata.: 2.94 m/s TR Peak Gr.: 34.62 mmHg Left Ventricle The left ventricle is normal size. There is normal LV segmental wall motion. Mild concentric left ventricular hypertrophy. Left ventricular systolic function is normal. LVEF is 60-65%. This study is not technically sufficient to allow evaluation of the LV diastolic function due to atrial fibrillation. Right Ventricle The right ventricle is normal size. The right ventricular systolic function is normal. Pacemaker lead is present in the right ventricle. Atria Left atrium is moderately dilated. Right atrium is moderately dilated. Aortic Valve Aortic valve is trileaflet, mildly calcified. Mild aortic regurgitation. There is no aortic valvular stenosis. Mitral Valve The mitral valve is normal in structure. mild mitral regurgitation. No evidence of mitral valve stenosis. Tricuspid Valve The tricuspid valve is normal in structure. Moderate tricuspid regurgitation. Estimated PAP is 45 mm Hg Pulmonic Valve The pulmonary valve is normal in structure. Moderate pulmonic regurgitation. Great Vessels The aortic root is normal in size. The ascending aorta is normal in size. IVC is not well visualized. Pericardium [facility] [address] [place] [address] 2 D/M-MODE ECHOCARDIOGRAM Name: IVAN MACKENZIENCER Room #: 218-P ADM IN M.R.#: [id number] ������������� Admission: 07/20/18 ������������� Attend Phys: Lul Jean, Discharge: ��� ������������� ��� Date of : 37 Date of Service: 07/21/18 1306 �� Report #: [id number] �������� ��������������������������������������������[id number] There is no pericardial effusion. <Conclusion> Mild concentric left ventricular hypertrophy. LVEF is 60-65%. Left atrium is moderately dilated. Mild aortic regurgitation. mild mitral regurgitation. Moderate tricuspid regurgitation. Estimated PAP is 45 mm Hg ��������������������������������������������� <ELECTRONICALLY SIGNED> ���������������������������������������� By: Ivan Camacho MD, [facility] ��������������������������������������������� 07/21/18 1306 1306 1306 Ivan Camacho MD, FACC /INF
[2018-07-21 15:01] VITALS: BP 109/60
--- NOTE | 2018-07-21 15:27 | NUR ---
Case opened to follow for dc planning. Pt is a&ox4 and known to cm from previous admissions. He was here in May with the flu and dc'd to snf at [facility]. He lives in the [facility] apts at [facility]. His dtrs Danae and Marina are supportive and involed. They are also his dpoa's for health care if needed. He has been on service with [facility] since his dc from SNF. He would like to have them again at tx. He has also increased his private duty support to 4 x daily through the [facility]. They help with meal prep, dsg, bathing and well checks. His dtr Danae sets up his pill box. He is not sure if he would be open to another snf stay if recommended. He will discuss with his dtrs and the attending as he does feel very weak. He has been considering checking into a move to an [facility] for more support. He did give permission for cm to speak with his dtrs to involve them in any dc planning efforts. Assistant Mechanic spoke with Marina and verified the above information. Will ask for therapy evals and await recommendations from the care team.
--- NOTE | 2018-07-21 18:42 | NUR ---
ASSUMED CARE OF PT AT APPROX 0700. PT IS ALERT AND ORIENTED X4, MONITOR ON TELE AND ABLE TO MAINTAIN 02 SAT >90 ON RA. PT DENIES PAIN. SOB WITH ACTIVITY BUT STATES HE FEELS MUCH BETTER WITH BREATHING. PT REMAINS ON CONTINUOUS PULSE OX. ASSESSMENT CHARTED PT AND DAUGHTER HAVE BEEN UPDATED ON POC, WILL CONTINUE TO MONITOR.
[2018-07-21 20:46] VITALS: BP 159/73
[2018-07-22 04:21] VITALS: BP 140/74
[2018-07-22 05:01] LABS: ABSOLUTE NEUTROPHILS 7.5 thou/uL (1.4-8.2); BASOPHILS 1.1 % (0.0-2.0); EOSINOPHILS 5.2 % (0.0-3.0); HEMATOCRIT 39.5 % (42.0-52.0); HEMOGLOBIN 13.3 gm/dL (14.0-18.0); MCH 30.6 pg (26.0-34.0); MCHC 33.6 g/dL (28.0-37.0); MONOCYTES 9.8 % (1.0-8.0); PLATELET COUNT 299 thou/uL (150-400); POLYS 67.9 % (36.0-66.0); RBC 4.35 mil/uL (4.50-6.00); RDW 15.5 % (10.5-14.5); WBC 11.1 thou/uL (4.0-11.0)
[2018-07-22 05:07] LABS: CALCIUM 10.3 mg/dL (8.5-10.1); CREATININE 1.3 mg/dL (0.7-1.3); POTASSIUM 3.7 mmol/L (3.5-5.1)
--- NOTE | 2018-07-22 07:46 | NUR ---
ASSESSMENTS CHARTED. PATIENT'S APPITITE IS VERY POOR, NOT EATING SOLID FOOD. DID GET HIM TO DRINK AN ENSURE DURING THE SHIFT. NOCTURNAL CPAP IN PLACE. PATIENT UP WITH ASSIST TO USE URINAL AT BEDSIDE. PLAN OF CARE TO CONTINUE DIURESING AND BREATHING TREATMENTS. WILL HAVE REST AND EXERCISE OXYGEN TEST TODAY.
[2018-07-22 08:05] VITALS: BP 137/74
[2018-07-22 11:46] VITALS: BP 119/58
--- NOTE | 2018-07-22 14:54 | NUR ---
Followup visit made with pt at bedside and calls rec'd from both dtrs Marina and Danae regarding dc planning. Pt will need home o2 setup per RT with 2liters at rest and 4 with activity. The pt prefers to go home with hh per [facility]. He does not want to go to SNF for rehab. Pt and his dtr are going to explore additional private duty support and [facility] or [facility] care options on that side of town where they live. Possible dc tomorrow. Will check for orders and O2 script in the am.
--- NOTE | 2018-07-22 15:12 | NUR ---
NOTIFIED TINA AT [facility] THAT PT POSS DC TOMORROW AND WILL HAVE RESUMPTION OF CARE WITH [facility] AT DISCHARGE. DCP TO FOLLOW.
--- NOTE | 2018-07-22 15:28 | NUR ---
FAXED REFERRAL TO [facility] FOR HOME O2 SPOKE WITH TONNY IN INTAKE AND SHE RECEIVED REFERRAL AND DCP TO FAX SIGNED SCRIPT TO HER IN THE AM 07/23. SHE WILL DELIVER TANK TO PT'S RM TOMORROW. DCP TO FOLLOW.
--- NOTE | 2018-07-22 16:00 | NUR ---
ASSUMED CARE THIS AM. AWAKE AND ALERT. NO COMPLAINTS OF PAIN OR NAUSEA. OX4 3LO2 PER NC. SOB WITH ACTIVITY. VPACED ON MONITOR. PLAN TO GO TO CARDIOPULMONARY FOR A REST AND EXCERISE TEST.
--- NOTE | 2018-07-22 16:08 | HC ---
[facility] [place] [address] CONSULTATION Name: SARITHA MACKENZIE [facility]: [facility] ADM IN M.R.#: [id number] Admission: 07/20/18 ������������������ Attend Phys: Lul Jean MD Discharge: ������������������ Date of : 37 Report #: [id number] THIS REPORT FOR: //name// CC: Lul Jean MD DATE OF SERVICE: 07/20/2018 TYPE OF REPORT: Cardiology consultation. HISTORY OF PRESENT ILLNESS: The patient is an 83-year-old single white male who I was asked to see in the hospital today after he complained of being short of breath. The patient has an extensive past medical history. He has a long history of atrial fibrillation with previous cardioversion years ago that did last. He subsequently developed permanent atrial fibrillation and has been chronically anticoagulated. His first pacemaker inserted by Dr. Cordero when he presented with symptomatic bradycardia. He underwent a generator change by Dr. Duron about 4 years ago. Apparently because of frequent falls. He was taken off of warfarin in the past. 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 He is now confined to a walker. The patient recently has had problems with back pain due to spinal stenosis. He was seen in the Cardiology Clinic about 3 weeks ago and was doing well. However, the past several days, he has had increasing shortness of breath. Denied any orthopnea, edema, fever or cough. He went to see Dr. Jean today. He sent him to the hospital to be admitted. He denies history of myocardial infarction and coronary artery disease or chest pain. Denied any palpitations or recent syncope. He has had no bleeding. PAST MEDICAL HISTORY: Significant for carpal tunnel surgery, prostate surgery, tonsillectomy, cataract extraction, hypertension, glucose intolerance and hyperlipidemia. MEDICATIONS: Include amlodipine, Lipitor, digoxin, Mary, metformin, metoprolol, oxybutynin, Protonix, Flomax and Xarelto. ALLERGIES: He has an allergy to SULFA DRUGS. FAMILY HISTORY: Positive for heart disease. SOCIAL HISTORY: He is , lives in a half-way in [place], smokes cigar and rarely drinks alcohol. REVIEW OF SYSTEMS: He has had no history of asthma, peptic ulcer disease, liver disease, kidney disease, cancer or psychiatric illness, chronic skin condition. PHYSICAL EXAMINATION: [facility] [address] [place] [address] CONSULTATION Name: IVAN MACKENZIENCER Room #: 218-P [facility] IN M.R.#: [id number] Admission: 07/20/18 ������������������ Attend Phys: Lul Jean MD Discharge: ������������������ Date of : 37 Report #: [id number] GENERAL: A slow moving male, lying in bed, appeared in no acute distress. VITAL SIGNS: His blood pressure 130/60, pulse is 60 and he is afebrile. HEENT: He is anicteric. Conjunctivae pink. Mucous members moist. NECK: Veins do not appear distended. No carotid bruits. Neck supple. CHEST: Clear to auscultation. CARDIOVASCULAR: Regular rate and rhythm. No significant murmurs. ABDOMEN: Soft. EXTREMITIES: Had no pitting edema. Dorsalis pedis pulse 1+ bilaterally. SKIN: Warm and dry. NEUROLOGICAL: Nonfocal. LYMPHATIC: No adenopathy. MUSCULOSKELETAL: No joint effusion. RADIOLOGICAL DATA: On the monitor, his rhythm appears to represent AFib with a ventricular paced rhythm. His workup, he actually had a stress PET scan in 2014 here at the [facility] that showed no evidence of ischemia, normal ejection fraction. Echocardiogram in 2014 also confirmed normal ejection fraction, left atrial enlargement and aortic sclerosis. LABORATORY DATA: His workup in the Emergency Room today included sodium 138, potassium 4.5, BUN 24, creatinine was 1.3 and it has been as high as 1.5 in the past. His liver function studies were normal. His BNP today was 3425. White blood cell count 13.3 and hemoglobin is 13.6. IMPRESSION RECOMMENDATIONS: 1. Shortness of breath. Suspect diastolic heart failure. I will consider discontinuing amlodipine. I would give the patient Lasix. 2. Hypertension. The patient is on a calcium amelia and beta amelia. 3. Hyperlipidemia. The patient is on a statin drug. 4. Diabetes. 5. Permanent atrial fibrillation. The patient has been anticoagulated with Xarelto. 6. Previous stroke. 7. Sick sinus syndrome. The patient predominantly ventricular paced. 8. Tobacco abuse. 9. Spinal stenosis. ��������������������������������������������� <ELECTRONICALLY SIGNED> ���������������������������������������� By: Ivan Camacho MD, [facility] ��������������������������������������������� 07/22/18 1608 1755 1433 Ivan Camacho MD, FAC /nt
[2018-07-22 16:13] VITALS: BP 136/51
[2018-07-22 20:02] VITALS: BP 124/48
--- NOTE | 2018-07-23 04:27 | NUR ---
ASSESSMENTS CHARTED. PATIENT QUALIFIED FOR HOME OXYGEN FOR REST AND EXERCISE. CM IS LINING UP SERVICE TO HOME. CXR SHOWED INCREASED INTERSTITIAL INFILTRATES ON RIGHT LUNG FIELD. PATIENT GOING HOMW TO INDEPENDENT LIVING WITH HOME [facility] AND ADDITIONAL SERVICE DESK LEAD. DAUGHTERS ARE VERY SUPPORTIVE. WHEN PATIENT IS UP FROM BED, HE SHOULD BE WEARING HIS BRACE AND SHOES FOR SUPPORT.
[2018-07-23 04:56] VITALS: BP 139/64
[2018-07-23 05:18] LABS: HEMATOCRIT 38.7 % (42.0-52.0); HEMOGLOBIN 13.1 gm/dL (14.0-18.0); MCH 30.7 pg (26.0-34.0); MCHC 33.8 g/dL (28.0-37.0); MCV 90.9 fL (80.0-100.0); RBC 4.25 mil/uL (4.50-6.00); WBC 10.2 thou/uL (4.0-11.0)
[2018-07-23 05:23] LABS: CREATININE 1.3 mg/dL (0.7-1.3); POTASSIUM 3.6 mmol/L (3.5-5.1)
[2018-07-23 08:11] VITALS: BP 123/57
--- NOTE | 2018-07-23 12:48 | NUR ---
ASSUMED CARE THIS AM. SLEEPING WITH CPAP ON. AWOKE TO VOICE AND CHANGED TO NC 3L. STATES HE FEELS GOOD THIS AM. NO COMPLAINTS OF PAIN OR NAUSEA. OX4. VPACED ON MONITOR. TO BE DETERMINED IF HE WILL BE TRANSFERRED BACK TO FACILITY TODAY.
[2018-07-23 13:53] VITALS: BP 123/57
--- NOTE | 2018-07-23 13:56 | NUR ---
Awaiting therapy imput this afternoon to determine discharge. Possible dc home later today with home o2 and resumption of hh services. [facility] has delievered a portable tank to the pt's room for the ride home and [facility] is awaiting dc orders to resume hh. Pt and dtr Danae updated. Guillermo will need script faxed to intake from the attending. Awaiting final dc orders from the attending. Will follow.
[2018-07-23 16:38] VITALS: BP 113/46
[2018-07-23] MEDS ORDERED: CEFDINIR300 MG PO (16:45)
[2018-07-23] MEDS ORDERED: ASPIR 8181 MG PO (16:46)
[2018-07-23] MEDS ORDERED: AZITHROMYCIN 2250 MG PO (16:46)
[2018-07-23] MEDS ORDERED: LASIX 40 MG TAB40 M1 PO (16:47)
[2018-07-23] MEDS ORDERED: K-DUR 20 MEQ T20 MEQ PO (16:47)
--- NOTE | 2018-07-23 16:58 | NUR ---
PT DISCHARGING BACK TO [facility] WITH [facility]. FAXED DC ORDERS/SUMMARY TO LEFT [facility] WITH TINA IN INTAKE THAT PT DC TODAY. SHE WILL NOTIFY PT TIME OF VISITS.
--- NOTE | 2018-07-23 18:30 | NUR ---
PATIENT DISCHARGED HOME WITH DAUGHTER. HOME WITH AND HOME HEALTH. TRANSPORTED IN WHEELCHAIR TO DAUGHTERS CAR WITH [facility] AND ID. STABLE CONDITION. DISCHARGE INSTRUCTIONS AND MEDICATIONS REVIEWED WITH PATIENT AND DAUGHTER. QUESTIONS ASKED AND ANSWERED.
== END 2018-07-23 18:10 | disposition home health service (06) | DRG 291 ==
LOC: 2N 14:38
PROVIDERS: Internal Medicine Cardiovascular Disease; Pediatrics; ADMIT Family Medicine
DX: I11.0 Hypertensive heart disease with heart failure (principal); E43 Unspecified severe protein-calorie malnutrition; J18.9 Pneumonia, unspecified organism; I69.354 Hemiplegia and hemiparesis following cerebral infarction affecting left non-dominant side; I50.43 Acute on chronic combined systolic (congestive) and diastolic (congestive) heart failure; E78.5 Hyperlipidemia, unspecified; I48.2 Chronic atrial fibrillation; I49.5 Sick sinus syndrome; M48.00 Spinal stenosis, site unspecified; M19.90 Unspecified osteoarthritis, unspecified site; G89.29 Other chronic pain; M54.9 Dorsalgia, unspecified; N40.0 Benign prostatic hyperplasia without lower urinary tract symptoms; G47.33 Obstructive sleep apnea (adult) (pediatric); E11.9 Type 2 diabetes mellitus without complications; G20 Parkinson's disease; K57.90 Diverticulosis of intestine, part unspecified, without perforation or abscess without bleeding; K21.9 Gastro-esophageal reflux disease without esophagitis; Z95.0 Presence of cardiac pacemaker; Z79.82 Long term (current) use of aspirin; Z79.899 Other long term (current) drug therapy; Z98.49 Cataract extraction status, unspecified eye; Z88.2 Allergy status to sulfonamides; Z82.49 Family history of ischemic heart disease and other diseases of the circulatory system; Z79.01 Long term (current) use of anticoagulants; Z68.32 Body mass index [BMI] 32.0-32.9, adult
CPT/HCPCS: 10081

== ENCOUNTER 2018-11-15 09:49 | Inpatient (IN) | payer OTHER ==
[~2018-11-15] VITALS: Ht 172.7 cm; Wt 88.2 kg
[~2018-11-15 09:49] MED LIST changes: +AZITHROMYCIN 2250 MG PO; +CEFDINIR300 MG PO; +K-DUR 20 MEQ T20 MEQ PO; +LASIX 40 MG TAB40 M1 PO
[2018-11-15 09:50] VITALS: BP 163/71
[2018-11-15] MEDS ORDERED: AMLODIPINE BESY10 MG PO (10:11)
[2018-11-15] MEDS ORDERED: PROTONIX40 M1 PO (10:12)
[2018-11-15 11:07] LABS: ABSOLUTE NEUTROPHILS 10.3 thou/uL (1.4-8.2); BASOPHILS 0.9 % (0.0-2.0); EOSINOPHILS 0.7 % (0.0-3.0); HEMOGLOBIN 12.4 gm/dL (14.0-18.0); MCH 29.2 pg (26.0-34.0); MCHC 32.6 g/dL (28.0-37.0); MCV 89.6 fL (80.0-100.0); PLATELET COUNT 340 thou/uL (150-400); POLYS 84.4 % (36.0-66.0); RBC 4.24 mil/uL (4.50-6.00); RDW 15.5 % (10.5-14.5); WBC 12.2 thou/uL (4.0-11.0)
[2018-11-15 11:10] LABS: ANION GAP 8 mmol/L (7-16); BUN 19 mg/dL (7-18); CALCIUM 10.8 mg/dL (8.5-10.1); CHLORIDE 103 mmol/L (98-107); CO2 29 mmol/L (21-32); CREATININE 1.3 mg/dL (0.7-1.3); GLUCOSE 174 mg/dL (74-106); POTASSIUM 3.8 mmol/L (3.5-5.1); SODIUM 140 mmol/L (136-145)
[2018-11-15 11:20] LABS: ALBUMIN 3.2 g/dL (3.4-5.0); LIPASE 54 U/L (73-393); SGOT 13 U/L (15-37); SGPT 14 U/L (30-65); TOTAL BILIRUBIN 0.7 mg/dL (<0.1-1.0); TROPONIN-I <0.06 ng/mL (<0.06)
[2018-11-15 12:00] LABS: URINE BILIRUBIN NEGATIVE (Negative); URINE BLOOD NEGATIVE (Negative); URINE CLARITY CLEAR; URINE COLOR YELLOW; URINE GLUCOSE-RANDOM* NEGATIVE (Negative); URINE KETONES NEGATIVE (Negative); URINE LEUKOCYTES-REFLEX NEGATIVE (Negative); URINE NITRITE-REFLEX NEGATIVE (Negative); URINE PROTEIN (DIPSTICK) NEGATIVE (Negative); URINE SPECIFIC GRAVITY <= 1.005 (1.005-1.035); URINE UROBILINOGEN 0.2 E.U./dl (0.2-1.0)
[2018-11-15 15:03] VITALS: BP 136/51
[2018-11-15 15:34] VITALS: BP 142/54
--- NOTE | 2018-11-15 18:17 | NUR ---
ARRIVED FROM ED VIA W/C, ALERT AND ORIENTED X4 AND FORGETFUL. VPACED AND VSS. C/O PAIN MID BACK MEDICATED NEEDED. ADMISION COMPLETED, AND WILL COTINUE WITH POC.
[2018-11-15 19:54] VITALS: BP 122/56
--- NOTE | 2018-11-16 03:14 | NUR ---
ASSESSMENT DOCUMENTED.PT BEEN RESTING IN NO ACUTE DISTRESS.A/OX4.VSS.CPAP ON THROUGH THE NOC.ASSIST X1 WITH BATHROOM NEEDS.PT DENIES BACK PAINS OR SPASMS.POSSIBLE DISCHARGE TODAY.WILL CONT TO MONITOR PER POC.
[2018-11-16 04:45] VITALS: BP 137/62
[2018-11-16 08:00] VITALS: BP 155/77
[2018-11-16] MEDS ORDERED: LIORESAL 10 MG10 MG PO (10:10)
[2018-11-16] MEDS ORDERED: LASIX 40 MG TAB40 M2 PO (10:15)
[2018-11-16] MEDS ORDERED: XALATAN2.5 ML OPHTHALMIC (10:18)
[2018-11-16] MEDS ORDERED: POTASSIUM20 PO (10:19)
[2018-11-16] MEDS ORDERED: ASPIR 8181 MG PO (10:21)
[2018-11-16 11:18] VITALS: BP 128/58
--- NOTE | 2018-11-16 11:59 | NUR ---
met with patient who is A/Ox4. He reports he lives at [facility]. He has pvt dty of wellfare checks from facility pvt dty and can assist am/pm with adls. Patient reports he has had prev stroke. He has an adaptive walker he uses in room. He is able to ambulate to bathroom at home. He uses [facility] which is in his room for apts and long distance. he has 2 supportive dtrs, one lives in [place] and one lives in [place]. They are supportive and assist with care as needed. Patient reports they will likely transport him home today. Patient believes Dr Jean plans oh today. Patient reports he has his own CPAP and [facility] [place] provides home oxygen used as bleedin to his CPAP and also [employer] oxygen. Patient reports he has used [facility] in past. He prefers dc home with HH care and not shelter. He has been skilled in past and not a good experience. will inquire if HH is accepting at [place].
[2018-11-16 13:16] VITALS: BP 128/58
--- NOTE | 2018-11-16 14:13 | NUR ---
FAXED REFERRAL TO [facility] SPOKE WITH TINA IN INTAKE SHE IS GOING TO VISIT PT AT THE BEDSIDE PRIOR TO DC TODAY. DCP TO FOLLOW.
[2018-11-16 14:58] VITALS: BP 128/58
--- NOTE | 2018-11-16 15:46 | NUR ---
ASSESSMENT CHARTED. PT ALERT AND ORIENTED. VSS. REPORT FELING MUCH BETTER TODAY. SEEN BY SADIA. ORDERS GIEVN TO DISCHARGE PT TO HOME. DISCHARGE INSTRUCTIONS GIVEN TO PT AND THE DAUGHTERS. PT AND THE DAUGHTERS VERBERLIZED UNDERSTANDING. PT LEFT THE FACILITY ACCOMPANIED BY THE DAUGHTERS.
== END 2018-11-16 15:43 | disposition home health service (06) | DRG 551 ==
LOC: ER 09:49 → 2N 13:56 → EROBS 13:56 → 2N 15:10
PROVIDERS: Emergency Medicine; ADMIT Family Medicine
DX: M48.00 Spinal stenosis, site unspecified (principal); J18.9 Pneumonia, unspecified organism; I69.354 Hemiplegia and hemiparesis following cerebral infarction affecting left non-dominant side; G47.33 Obstructive sleep apnea (adult) (pediatric); I27.20 Pulmonary hypertension, unspecified; K21.9 Gastro-esophageal reflux disease without esophagitis; I10 Essential (primary) hypertension; E78.5 Hyperlipidemia, unspecified; K44.9 Diaphragmatic hernia without obstruction or gangrene; K57.90 Diverticulosis of intestine, part unspecified, without perforation or abscess without bleeding; I48.91 Unspecified atrial fibrillation; N40.0 Benign prostatic hyperplasia without lower urinary tract symptoms; M19.90 Unspecified osteoarthritis, unspecified site; G20 Parkinson's disease; Z95.0 Presence of cardiac pacemaker; Z88.2 Allergy status to sulfonamides
CPT/HCPCS: 10081

== ENCOUNTER 2019-03-11 18:36 | Inpatient (IN) | payer OTHER ==
[~2019-03-11] VITALS: Ht 172.7 cm; Wt 86.2 kg
[~2019-03-11 18:36] MED LIST changes: +AMLODIPINE BESY10 MG PO; +LASIX 40 MG TAB40 M2 PO; +LIORESAL 10 MG10 MG PO; +POTASSIUM20 PO; +XALATAN2.5 ML OPHTHALMIC
[2019-03-11 18:37] VITALS: BP 143/63
[2019-03-11 19:30] LABS: URINE BILIRUBIN 1+ (Negative); URINE BLOOD 3+ (Negative); URINE CLARITY SL CLOUDY; URINE COLOR BROWN; URINE GLUCOSE-RANDOM* NEGATIVE (Negative); URINE KETONES NEGATIVE (Negative); URINE LEUKOCYTES-REFLEX NEGATIVE (Negative); URINE NITRITE-REFLEX NEGATIVE (Negative); URINE PROTEIN (DIPSTICK) 2+ (Negative); URINE SPECIFIC GRAVITY 1.025 (1.005-1.035)
[2019-03-11 19:43] LABS: ICTOTEST (BILI CONFIRMATORY) Positive (Negative)
[2019-03-11 19:55] LABS: CASTS None Seen /LPF (None Seen); MUCUS 0-3 Light strn/LPF (None Seen); SQUAMOUS 0-3 Few /LPF (0-3)
[2019-03-11 19:56] LABS: AMORPHOUS URATES Few /LPF (None Seen); CRYSTALS None Seen /LPF (None Seen); URINE RBC >20 Many /HPF (0-2); YEAST-REFLEX Present (None Seen)
[2019-03-11 20:33] LABS: CALCIUM 10.5 mg/dL (8.5-10.1); CREATININE 1.1 mg/dL (0.7-1.3); POTASSIUM 4.4 mmol/L (3.5-5.1)
[2019-03-11 20:39] LABS: ALBUMIN 2.9 g/dL (3.4-5.0); MAGNESIUM 1.9 mg/dL (1.8-2.4); TOTAL BILIRUBIN 0.5 mg/dL (<0.1-1.0)
[2019-03-11 21:24] LABS: ABSOLUTE NEUTROPHILS 7.7 thou/uL (1.4-8.2); BASOPHILS 0.9 % (0.0-2.0); EOSINOPHILS 2.1 % (0.0-3.0); HEMATOCRIT 33.6 % (42.0-52.0); HEMOGLOBIN 10.5 gm/dL (14.0-18.0); LYMPHOCYTES 17.4 % (24.0-44.0); MCH 25.7 pg (26.0-34.0); MCHC 31.1 g/dL (28.0-37.0); MCV 82.6 fL (80.0-100.0); MONOCYTES 8.3 % (1.0-8.0); PLATELET COUNT 256 thou/uL (150-400); POLYS 71.3 % (36.0-66.0); RBC 4.07 mil/uL (4.50-6.00); RDW 15.8 % (10.5-14.5); WBC 10.8 thou/uL (4.0-11.0)
[2019-03-11 22:22] VITALS: BP 142/59
[2019-03-11 22:45] VITALS: BP 135/58
[2019-03-11 23:24] VITALS: BP 135/56
--- NOTE | 2019-03-12 03:44 | NUR ---
PATIENT AOX4 MAKES NEEDS KNOWN. PATIENT OFFERED DINNER. PATIENT USES C PAP AT NIGHT.CALLED DR. LOZOYA TO USE HIS OWN C PAP, RT NOTIFIED. WILL SEE PATIENT IN THE AM.PATIENT NOTIFIEED. PATIENT CONTIENT AND USES A URINAL. PATIENT HAS A LEFT SIDE WEAKNESS. ELEVATED LUE AND BLE. FAMILY AT BEDSIDE DURING ASSESSMENT, CONSET SIGNED AND IN THE CHART. SKIN IS WARM AND INTACT NO BRUISES OR OPEN AREAS. PATIENT TURNED Q 2 HOURS. PATIENT IN BED ASLEEP AT THIS TIME BREATHING REGULAR AND UNLABOURED.
[2019-03-12 06:40] LABS: HEMATOCRIT 31.7 % (42.0-52.0); HEMOGLOBIN 9.9 gm/dL (14.0-18.0); MCHC 31.2 g/dL (28.0-37.0); MCV 83.4 fL (80.0-100.0); RBC 3.8 mil/uL (4.50-6.00); RDW 15.8 % (10.5-14.5); WBC 8.4 thou/uL (4.0-11.0)
[2019-03-12 07:01] LABS: ALBUMIN 2.6 g/dL (3.4-5.0); CALCIUM 9.8 mg/dL (8.5-10.1); POTASSIUM 4.3 mmol/L (3.5-5.1); TOTAL BILIRUBIN 0.4 mg/dL (<0.1-1.0); TOTAL PROTEIN 6.4 g/dL (6.4-8.2)
[2019-03-12 09:34] VITALS: BP 129/57
--- NOTE | 2019-03-12 11:45 | NUR ---
INITIAL ASSESSMENT: Reviewed chart and spoke with nursing. Pt was admitted from [facility]. Pt with hx of CVA and Parkinson's . Pt is currently on IVF and IV abx. SW met with pt at bedside. Introduced role of SW. Pt is alert/orientated x 4. Pt reports he lives alone in his apt. Pt has a home cpap machine provided by [facility]. Pt has used [facility] in the past. Pt has been to [facility] and [facility] in the past. Pt is hoping to discharge back home when medically stable. Pt's PCP is Dr. Jean. SW is following to assist as needed with discharge planning.
[2019-03-12 15:00] VITALS: BP 137/69
--- NOTE | 2019-03-12 18:44 | NUR ---
PT A&OX4, VSS, DENIES PAIN. PATIENT HAS IV FLUIDS RUNNING, PATIENT TOLERATING DIET. PATIENT URINE IS CLEAR AND YELLOW. NO SIGNS OF DISTRESS. WILL CONTINUE TO MONITOR.
[2019-03-12 20:28] VITALS: BP 132/55
--- NOTE | 2019-03-13 03:19 | NUR ---
PATIENT AOX4 MAKES NEEDS KNOWN. PATIENT ADMITTED FOR UTI, URINE YELLOW IN COLOR NO ODOR. PATIENT ON C PAP. FALL PRECAUTION IN PLACE. PATIENT DENIED PAIN OR DISCOMFORT.PATIENT IN BED ASLEEP AT THIS TIME BREATHING REGULAR AND UNLABOURED.
[2019-03-13 05:12] LABS: HEMATOCRIT 30.9 % (42.0-52.0); HEMOGLOBIN 9.9 gm/dL (14.0-18.0); MCH 26.3 pg (26.0-34.0); MCHC 32.1 g/dL (28.0-37.0); MCV 82.1 fL (80.0-100.0); RBC 3.76 mil/uL (4.50-6.00); RDW 15.5 % (10.5-14.5); WBC 7.9 thou/uL (4.0-11.0)
[2019-03-13 05:33] LABS: CALCIUM 10.7 mg/dL (8.5-10.1); CREATININE 1.1 mg/dL (0.7-1.3)
[2019-03-13 07:34] VITALS: BP 137/60
[2019-03-13 09:21] VITALS: BP 137/60
--- NOTE | 2019-03-14 14:47 | EKG ---
[address] [place] [address] ELECTROCARDIOGRAM REPORT Name: IVAN MACKENZIENCWENDI ROSENTHAL Room #: 463-P [facility] IN M.R.#: [id number] Admission: 03/11/19 Attend Phys: Lul Jean MD Discharge: 03/13/19 Date of : 37 Report #: [id number] THIS REPORT FOR: //name// [facility] ED Test Date: 2019-03-11 Test Time: 20:10:33 Pat Name: SARITHA MACKENZIE Department: Room: [facility] Gender: M Nuclear Logging Engineer: MPARK : 1935 Requested By: Froilan Huizar Order Number: [id number] MD: Galen Mancia Measurements Intervals [place] Rate: 64 P: 0 IN: 46 QRS: -71 QRSD: 180 T: 107 QT: 414 QTc: 427 Interpretive Statements Ventricular-paced rhythm No further analysis attempted due to paced rhythm Compared to ECG 07/21/2018 07:31:10 Early repolarization no longer present Electronically Signed On 03-14-2019 14:46:54 [employer] INSURANCE SALESPERSON by Galen Mancia [email or web address] <ELECTRONICALLY SIGNED> By: Galen Mancia MD 03/14/19 1446 09 09 Galen Mancia MD /EPI
== END 2019-03-13 12:00 | disposition home or self-care (01) | DRG 690 ==
LOC: ER 18:36 → EROBS 21:59 → 4W 22:43
PROVIDERS: Emergency Medicine; ADMIT Family Medicine
PROC: 5A09357 Assistance with Respiratory Ventilation, Less than 24 Consecutive Hours, Continuous Positive Airway Pressure (ICD-10-PCS; principal; 2019-03-12)
DX: N39.0 Urinary tract infection, site not specified (principal); I69.354 Hemiplegia and hemiparesis following cerebral infarction affecting left non-dominant side; K21.9 Gastro-esophageal reflux disease without esophagitis; E78.5 Hyperlipidemia, unspecified; N40.0 Benign prostatic hyperplasia without lower urinary tract symptoms; I10 Essential (primary) hypertension; K44.9 Diaphragmatic hernia without obstruction or gangrene; J32.9 Chronic sinusitis, unspecified; F17.210 Nicotine dependence, cigarettes, uncomplicated; K57.90 Diverticulosis of intestine, part unspecified, without perforation or abscess without bleeding; D50.0 Iron deficiency anemia secondary to blood loss (chronic); I48.91 Unspecified atrial fibrillation; G47.30 Sleep apnea, unspecified; G20 Parkinson's disease; M54.9 Dorsalgia, unspecified; G89.29 Other chronic pain; M19.90 Unspecified osteoarthritis, unspecified site; R29.6 Repeated falls; Z79.82 Long term (current) use of aspirin; Z79.01 Long term (current) use of anticoagulants; Z79.84 Long term (current) use of oral hypoglycemic drugs; Z95.0 Presence of cardiac pacemaker; Z79.891 Long term (current) use of opiate analgesic; Z79.899 Other long term (current) drug therapy; Z88.2 Allergy status to sulfonamides
CPT/HCPCS: 10040

== ENCOUNTER 2019-05-04 17:42 | Emergency (ER) | payer OTHER ==
[~2019-05-04] VITALS: Ht 172.7 cm; Wt 88.0 kg
[2019-05-04 18:11] LABS: ABSOLUTE NEUTROPHILS 5.2 thou/uL (1.4-8.2); BASOPHILS 1.3 % (0.0-2.0); HEMATOCRIT 40.7 % (42.0-52.0); HEMOGLOBIN 12.7 gm/dL (14.0-18.0); LYMPHOCYTES 8.4 % (24.0-44.0); MCH 26.3 pg (26.0-34.0); MCHC 31.2 g/dL (28.0-37.0); MCV 84.4 fL (80.0-100.0); PLATELET COUNT 218 thou/uL (150-400); POLYS 78.3 % (36.0-66.0); RBC 4.82 mil/uL (4.50-6.00); RDW 19.1 % (10.5-14.5); WBC 6.7 thou/uL (4.0-11.0)
[2019-05-04 18:16] LABS: URINE BILIRUBIN NEGATIVE (Negative); URINE BLOOD NEGATIVE (Negative); URINE CLARITY CLEAR; URINE COLOR YELLOW; URINE GLUCOSE-RANDOM* NEGATIVE (Negative); URINE KETONES NEGATIVE (Negative); URINE LEUKOCYTES-REFLEX TRACE (Negative); URINE NITRITE-REFLEX NEGATIVE (Negative); URINE PROTEIN (DIPSTICK) NEGATIVE (Negative); URINE UROBILINOGEN 0.2 E.U./dl (0.2-1.0)
[2019-05-04 18:18] LABS: ANION GAP 7 mmol/L (7-16); BUN 15 mg/dL (7-18); CALCIUM 10.6 mg/dL (8.5-10.1); CHLORIDE 99 mmol/L (98-107); CO2 29 mmol/L (21-32); CREATININE 1.2 mg/dL (0.7-1.3); GLUCOSE 116 mg/dL (74-106); POTASSIUM 4.5 mmol/L (3.5-5.1); SODIUM 135 mmol/L (136-145)
[2019-05-04 18:28] LABS: TROPONIN-I <0.06 ng/mL (<0.06)
[2019-05-04] MEDS ORDERED: DOXYCYCLINE 10100 MG PO (21:06)
[2019-05-04 21:26] VITALS: BP 137/70
--- NOTE | 2019-05-05 08:16 | EKG ---
[facility] [place] [address] [place] [address] ELECTROCARDIOGRAM REPORT Name: SARITHA MACKENZIE Room #: DEP M.R.#: [id number] Admission: 05/04/19 Attend Phys: Discharge: 05/04/19 Date of : 37 Report #: [id number] THIS REPORT FOR: cc: Lul Jean MD, Neal A. MD Couchonnal, Luis F. MD ~ THIS REPORT FOR: //name// [facility] ED Test Date: 2019-05-04 Test Time: 18:12:27 Pat Name: SARITHA MACKENZIE Department: Room: Gender: Tool Engineer: TOPHER : 1935 Requested By: Sam Almaguer Order Number: [id number] MD: Galen Mancia Measurements Intervals [place] Rate: 62 P: 0 OK: 59 QRS: -76 QRSD: 177 T: 105 QT: 434 QTc: 441 Interpretive Statements Ventricular-paced rhythm No further analysis attempted due to paced rhythm Compared to ECG 03/11/2019 20:10:33 No significant changes Electronically Signed On 05-05-2019 8:15:07 CDT by Galen Mancia [email or web address] <ELECTRONICALLY SIGNED> By: Galen Mancia MD 05/05/19814 11 11 Galen Mancia MD /EPI
== END 2019-05-04 21:26 | disposition home or self-care (01) ==
LOC: ER 17:42
PROVIDERS: Nurse Practitioner
DX: S16.1XXA Strain of muscle, fascia and tendon at neck level, initial encounter (principal); S29.012A Strain of muscle and tendon of back wall of thorax, initial encounter; T14.8XXA Other injury of unspecified body region, initial encounter; J18.9 Pneumonia, unspecified organism; M79.602 Pain in left arm; K21.9 Gastro-esophageal reflux disease without esophagitis; I10 Essential (primary) hypertension; E78.5 Hyperlipidemia, unspecified; I48.91 Unspecified atrial fibrillation; M19.90 Unspecified osteoarthritis, unspecified site; F17.210 Nicotine dependence, cigarettes, uncomplicated; Z86.73 Personal history of transient ischemic attack (TIA), and cerebral infarction without residual deficits; Z79.899 Other long term (current) drug therapy; Z79.82 Long term (current) use of aspirin; W17.89XA Other fall from one level to another, initial encounter; Y93.89 Activity, other specified; Y92.89 Other specified places as the place of occurrence of the external cause; Y99.8 Other external cause status